=== PATIENT | male | born 1955 ===

== ENCOUNTER 2016-08-10 08:03 | Day surgery (SDC) | payer SELFPAY ==
[2016-08-10] MEDS ORDERED: Lactated Ringer's 500 ML IV ONE ×3 (08:25→08:30)
[2016-08-10] MEDS ORDERED: Propofol 10 mg/ml Inj (20 ML) ONE ×2 (09:55→10:24)
[2016-08-11 15:56] VITALS: TEMP 97
[2016-08-11 15:57] VITALS: BP 104/70; PULSE 60; RESP 16; O2SAT 97
== END 2016-08-10 11:37 | disposition home or self-care (01) ==
LOC: H.ENDO 08:03
PROVIDERS: ATTEND Internal Medicine Gastroenterology
DX: Z12.11 Encounter for screening for malignant neoplasm of colon (principal)
CPT/HCPCS: 45378; J2001; J2704; J7120